=== PATIENT | female | born 1960 | race Two or more races ===

== ENCOUNTER 2018-03-24 07:12 | Inpatient (IN) | payer OTHER ==
[2018-03-24] VITALS (8 sets, daily range): BP systolic 139–162; BP diastolic 68–76
[~2018-03-24] VITALS: Ht 165.1 cm; Wt 100.7 kg
[2018-03-24] MEDS ORDERED: CELECOXIB 100 MG CAPSULE ONE (07:52)
[2018-03-24] MEDS ORDERED: oxyCODONE HCL SR 10MG TAB.SR.12H PO ONE (07:52)
[2018-03-24] MEDS ORDERED: ACETAMINOPHEN 325 MG TABLET ONE (07:52)
[2018-03-24] MEDS ORDERED: TRANEXAMIC ACID 3,000 MG in SODIUM CHLORIDE IRRIG SOLUTION 70 ML IR ONE (08:00)
[2018-03-24] MEDS ORDERED: MIDAZOLAM HCL 2 MG/2ML VIAL ONE (09:10)
[2018-03-24] MEDS ORDERED: MORPHINE SULFATE/PF 10 MG/10ML (1MG/ML) AMPUL ONE (09:10)
[2018-03-24] MEDS ORDERED: BUPIVACAINE 0.75% DEXT-PF 2 ML AMPUL ONE (09:10)
[2018-03-24] MEDS ORDERED: FENTANYL PF 100MCG/2ML AMPUL ONE ×2 (09:11→12:19)
[2018-03-24] MEDS ORDERED: BUPIVACAINE MPF 0.5% W/EPI INJ 30 ML VIAL ONE (09:11)
[2018-03-24] MEDS ORDERED: BACITRACIN 50000 UNITS/VIAL ONE (09:54)
[2018-03-24] MEDS ORDERED: HYDROMORPHONE INJ 2 MG/ML DISP.SYRIN ONE (12:09)
[2018-03-24] MEDS ORDERED: diphenhydrAMINE HCL 25 MG CAPSULE PO PRN (12:30)
[2018-03-24] MEDS ORDERED: ONDANSETRON HCL/PF 4 MG/2 ML VIAL IV PRN (12:30)
[2018-03-24] MEDS ORDERED: MAG HYDROX/AL HYDROX/SIMETH 30 ML UDC PO PRN (12:30)
[2018-03-24] MEDS ORDERED: CLONIDINE HCL 0.1 MG TABLET PO PRN (12:30)
[2018-03-24] MEDS ORDERED: PROMETHAZINE HCL 50 MG/ML AMPUL IM PRN (12:30)
[2018-03-24] MEDS ORDERED: MAGNESIUM HYDROXIDE 30 ML UDC PO PRN (12:30)
[2018-03-24] MEDS ORDERED: HYDROMORPHONE 1 MG/1 ML DISP.SYRIN ONE (12:36)
--- NOTE | 2018-03-24 12:50 | NUR ---
MS RV SERVICER NOTE RECEIVED PT FROM OR VIA BED. PT IS S/P RIGHT TOTAL KNEE ARTHROPLASTY WITH DR. FLORES. PT IS ALERT AND ORIENTED X4, DENIES N/V, CHEST PAIN, SOB. BREATHING IS EVEN AND UNLABORED ON 2 L NC. NEUROVASCULAR STATUS IS INTACT, KNEE IMMOBILIZER, ICE PACKS, AND SCDS IN PLACE. PATIENT RATES PAIN 10/10 IN THE RIGHT KNEE, HOWEVER PT STATES THAT SHE DOES NOT WANT TO TAKE ANY PAIN MEDICATION AT THIS TIME. PROVIDED EDUCATION REGARDING RISKS AND BENEFITS, PT STILL DECLINED AND STATE SHE WILL LET THE NURSE KNOW WHEN SHE WANTS PAIN MEDICATION. R WRIST #18 G IS SALINE LOCKED WITHOUT REDNESS OR SWELLING. ALL BELONGINGS ACCOUNTED FOR, AND BELONGINGS LIST SIGNED AND PLACED IN CHART. SURGICAL ORDERS FAXED TO PHARMACY, INFORMED HOSPITALIST DR. GOMEZ OF PT ARRIVAL.
[2018-03-24] MEDS ORDERED: COLACE 250 MG CAPSULE PO PRN (13:30)
[2018-03-24] MEDS ORDERED: TYLENOL 650 MG TABLET PO PRN (13:30)
[2018-03-24] MEDS ORDERED: SENOKOT 8.6 MG TABLET PO PRN (13:30)
[2018-03-24] MEDS ORDERED: DULCOLAX 10 MG/SUPP.RECT RC PRN (13:30)
[2018-03-24] MEDS ORDERED: AMBIEN 5 MG TABLET PO PRN (13:30)
--- NOTE | 2018-03-24 13:30 | NUR ---
MS RN NOTE PT STATES THAT HER HAS BROUGHT HER HOME MEDICATION, HOWEVER THEY DID NOT BRING THE MEDICATIONS IN THE LABELED BOTTLES BUT IN AN UNLABELED PILL ORGANIZER. INFORMED THE PATIENT AND THAT ALL UNLABELED MEDICATION SHOULD BE REMOVED FROM THE ROOM AND TAKEN HOME, AND TO NOT TAKE ANY MEDICATION WHILE IN THE HOSPITAL THAT IS NOT PROVIDED BY THE NURSE AND VERIFIED BY THE PHARMACY FOR SAFETY REASONS. THE PT AND VERBALIZED UNDERSTANDING. HOME MED RECON NURSE WILL FOLLOW UP WITH PT REGARDING HOME MEDS AND THE NURSE WILL INFORM HOSPITALIST OF NEED FOR MEDICATION RECONCILIATION.
[2018-03-24] MEDS ORDERED: ASPI-1169 PO (13:31)
[2018-03-24] MEDS ORDERED: LOSA100T31 PO (13:31)
[2018-03-24] MEDS ORDERED: PANT40TA2 PO (13:31)
[2018-03-24] MEDS ORDERED: POTA10TA15 PO (13:31)
[2018-03-24] MEDS ORDERED: HYDR12.55 PO (13:31)
[2018-03-24] MEDS ORDERED: LEVO75TA7 PO (13:31)
[2018-03-24] MEDS ORDERED: ATOR10TA PO (13:31)
[2018-03-24] MEDS ORDERED: METF-440 PO (13:31)
[2018-03-24] MEDS ORDERED: AMLO10TA6 PO (13:31)
[2018-03-24] MEDS ORDERED: FLUT16SP BNOSTRILS (13:31)
[2018-03-24] MEDS ORDERED: ALBU8.5H8 IH (13:31)
[2018-03-24] MEDS ORDERED: ESTR2TAB PO (13:31)
[2018-03-24] MEDS: IV LR 1000 ML 1,000 ML IV PRN (13:33)
--- NOTE | 2018-03-24 13:40 | NUR ---
MS RN PHYSICAL THERAPIST PHYSICAL THERAPIST AT THE BEDSIDE FOR PT EVAL. HOWEVER PT DECLINED DUE TO PAIN. PROVIDED EDUCATION TO PT REGARDING PAIN MANAGEMENT OPTIONS INCLUDING DILAUDID 0.5MG SUBQ, TYLENOL 650MG, AND OXYCODONE 5MG. PT STATED THAT SHE DOES NOT WANT TO TAKE ANY PAIN MEDICATION SINCE SHE JUST CAME BACK FROM SURGERY AND THAT SHE DOES NOT WANT TO WORK WITH PHYSICAL THERAPIST OR HAVE CPM PLACED TODAY TODAY. PROVIDED EDUCATION REGARDING RISKS AND BENEFITS OF PHYSICAL THERAPIST AND CPM, PT STILL DECLINE. INFORMED PT THAT SHE WILL NOT BE ABLE TO AMBULATE UNTIL PT EVALUATES HER, PT VERBALIZED UNDERSTANDING.
[2018-03-24] MEDS ORDERED: INSU10VI3 SQ (13:43)
[2018-03-24] MEDS: HYDROMORPHONE 1 MG/1 ML DISP.SYRIN SQ PRN ×2 (15:02→18:42)
--- NOTE | 2018-03-24 15:02 | NUR ---
MS RN NOTE ADMINISTERED DILAUDID 0.5MG SUBQ ORDERED FOR SEVERE PAIN. PT VS WNL
[2018-03-24] MEDS ORDERED: ALBUTEROL SULFATE 8 GM HFA.AER.AD IH PRN (15:30)
[2018-03-24] MEDS ORDERED: ALBUTEROL FS 2.5 MG/3 ML VIAL.NEB NEB PRN (16:00)
[2018-03-24] MEDS ORDERED: DEXTROSE 50%-WATER 50 ML DISP.SYRIN IV PRN (17:30)
[2018-03-24] MEDS: BLOOD SUGAR DIAGNOSTIC 1 EACH STRIP VI SCH ×2 (17:51→21:46)
--- NOTE | 2018-03-24 17:55 | NUR ---
MS RN INSULIN SPOKE WITH SHERIF IN PHARMACY AND REQUESTED THEY SEND UP INSULIN. PER SHERIF THEY WILL SEND UP SHORTLY.
[2018-03-24] MEDS: METFORMIN 500 MG TABLET PO SCH (17:59)
[2018-03-24] MEDS: FLUTICASONE PROPIONATE 16 GM BOTTLE NS SCH (17:59)
[2018-03-24] MEDS: DOCUSATE SODIUM 100 MG CAPSULE PO SCH (17:59)
--- NOTE | 2018-03-24 18:20 | NUR ---
MS RN INSULIN SPOKE WITH SHARON IN PHARMACY, PER SHARON PHARMACY WILL SEND UP INSULIN AND ANCEF SHORTLY.
--- NOTE | 2018-03-24 18:40 | NUR ---
MS RN ROOM CHANGE PER HUMBERTO HENLEY RN, OK FOR PT TO STAY OVERNIGHT AND PT WILL MOVE TO A NEW ROOM ONCE ONE CLEANED.
--- NOTE | 2018-03-24 18:43 | NUR ---
MS RN DILAUDID DILAUDID 0.5MG SUBQ ADMINISTERED FOR PAIN 11/18. BP: 153/79, HR: 101, SPO2: 96% W/ 2L NC.
--- NOTE | 2018-03-24 18:49 | NUR ---
MS RN JOSEPH SPOKE WITH SHERIF IN PHARMACY REGARDING ANCEF. INFORMED SHERIF THAT ANCEF WAS DUE AT 1800, PER SHERIF THE PHARMACY STAFF IS STILL WORKING ON IT AND WILL SEND SHORTLY.
--- NOTE | 2018-03-24 18:52 | NUR ---
RN INSULIN INSULIN DELIVERED TO FLOOR. RE-CHECKED BG PRIOR TO ADMINISTRATION AND IS 361. INSULIN SLIDING SCALE ADMINISTERED ORDERED, PT ATE DINNER AND PROVIDED WITH SNACK.
[2018-03-24] MEDS: *INSULIN REGULAR(HUMULIN R)HUM 100 UNIT/ML VIAL SQ PRN ×2 (18:58→21:47)
[2018-03-24] MEDS: ANCEF 1 G in IV D5W 50 ML IV SCH (19:00)
--- NOTE | 2018-03-24 19:01 | NUR ---
MS CINTRON LATE MEDICATION ADMINISTRATION NOTE ANCEF ADMINISTERED LATE DUE TO LATE DELIVERY TO FLOOR.
--- NOTE | 2018-03-24 19:13 | NUR ---
MS RN CLOSING NOTE PT IN BED, ALERT AND ORIENTED X4, DENIES N/V, CHEST PAIN, SOB. BREATHING IS EVEN AND UNLABORED ON 2 L NC. NEUROVASCULAR STATUS IS INTACT, KNEE IMMOBILIZER, ICE PACKS, AND SCDS IN PLACE. PATIENT RATES PAIN 5/10 IN THE RIGHT KNEE, AND TOLERABLE AT THIS TIME. R WRIST #18 G IS INFUSING ORDERED WITHOUT REDNESS OR SWELLING. ADLS PROVIDED AND PT ASSISTED TO TURN AND REPOSITION Q2H FOR THE DURATION OF THE SHIFT. ALL NEEDS ATTENDED TO, BED IS LOCKED AND IN LOWEST POSITION, SIDE RAILS UP X2, CALL LIGHT WITHIN REACH.
--- NOTE | 2018-03-24 19:45 | NUR ---
MS/RN NOTES RECEIVED PT. LYING IN BED. PT. IS AWAKE, ALERT AND ORIENTED X4. BREATHING EVEN AND UNLABORED ON ROOM AIR. NO SOB, RESPIRATORY DISTRESS OR COMPLAINTS OF PAIN NOTED AT THIS TIME. PT. STATES SHE RECENTLY RECEIVED PAIN MEDICATION AND IT IS EFFECTIVE. PT. IS S/P RIGHT TOTAL KNEE ARTHROPLASTY WITH DR. FLORES EARLIER TODAY. PT. WITH POST OP DRESSING PRESENT, CLEAN, DRY AND INTACT. NO BLEEDING OR DRAINAGE NOTED. PER DAYSHIFT NURSE PT. REFUSED PT AND CPM TODAY. PT. EDUCATED ON IMPORTANCE AND CONTINUED TO REFUSE. PT. WITH RIGHT WRIST 18 GAUGE PERIPHERAL IV PRESENT, PATENT AND INTACT ADMINISTERING TO PT. LR @ 75 ML/HR. BED LOCKED AND IN LOWEST POSITION, SIDE RAILS UP X3, BED ALARM ON, CALL LIGHT WITHIN REACH, WILL CONTINUE TO MONITOR.
[2018-03-24] MEDS: FAMOTIDINE (20 MG) 20 MG TABLET PO SCH (21:46)
[2018-03-25] MEDS: HYDROMORPHONE 1 MG/1 ML DISP.SYRIN SQ PRN ×3 (01:36→11:50)
[2018-03-25] MEDS: ANCEF 1 G in IV D5W 50 ML IV SCH (02:08)
[2018-03-25] MEDS: IV LR 1000 ML 1,000 ML IV PRN (04:02)
--- NOTE | 2018-03-25 06:21 | NUR ---
MS/RN NOTES PT. IS LYING IN BED RESTING. BREATHING EVEN AND UNLABORED ON ROOM AIR. NO SOB, RESPIRATORY DISTRESS OR COMPLAINTS OF PAIN NOTED AT THIS TIME. PT. WITH POST OP RIGHT KNEE DRESSING PRESENT, CLEAN, DRY AND INTACT. NO BLEEDING OR DRAINAGE NOTED. PT. WITH RIGHT WRIST 18 GAUGE PERIPHERAL IV PRESENT, PATENT AND INTACT ADMINISTERING TO PT. LR @ 75 ML/HR. ALL PT. NEEDS MET. BED LOCKED AND IN LOWEST POSITION, SIDE RAILS UP X3, BED ALARM ON, CALL LIGHT WITHIN REACH, WILL ENDORSE TO DAYSHIFT NURSE FOR CONTINUITY OF CARE.
[2018-03-25] MEDS: BLOOD SUGAR DIAGNOSTIC 1 EACH STRIP VI SCH ×4 (06:45→22:01)
[2018-03-25] MEDS: INSULIN REGULAR, HUMAN 100 UNIT/ML 3 ML VIAL SQ PRN ×3 (06:48→17:41)
--- NOTE | 2018-03-25 07:42 | NUR ---
MS/RN OPENING NOTE PATIENT IN BED IN STABLE CONDITION. A/O X 4. NO SIGNS OF ACUTE DISTRESS. COMPLAIN OF PAIN TO RIGHT LEG RATED 5/10. S/P RIGHT TOTAL KNEE ARTHROPLASTY. TOLERATING WELL. ALL NEEDS ATTENDED TO. CALL LIGHT WITHIN REACH. AT BEDSIDE. WILL CONTINUE TO MONITOR TO ENSURE SAFETY.
[2018-03-25 08:00] VITALS: BP 147/66
[2018-03-25] MEDS: ASPIRIN 325 MG TABLET PO SCH (08:31)
[2018-03-25] MEDS: ESTRADIOL 1 MG TABLET PO SCH (08:31)
[2018-03-25] MEDS: LEVOTHYROXINE SODIUM 75 MCG TABLET PO SCH (08:31)
[2018-03-25] MEDS: DOCUSATE SODIUM 100 MG CAPSULE PO SCH ×2 (08:31→16:46)
[2018-03-25] MEDS: FAMOTIDINE (20 MG) 20 MG TABLET PO SCH ×2 (08:31→21:36)
[2018-03-25] MEDS: LOSARTAN POTASSIUM 50 MG TABLET PO SCH (08:32)
[2018-03-25] MEDS: oxyCODONE IR immediate release 5 MG PO PRN ×2 (08:32→14:30)
[2018-03-25] MEDS: AMLODIPINE BESYLATE 10 MG TABLET PO SCH (08:33)
[2018-03-25] MEDS: POTASSIUM CHLORIDE 10 MEQ TABLET.SA PO SCH (08:33)
[2018-03-25] MEDS: HYDROCHLOROTHIAZIDE 25 MG TABLET PO SCH (08:33)
[2018-03-25] MEDS: METFORMIN 500 MG TABLET PO SCH ×2 (08:33→16:46)
[2018-03-25] MEDS: ATORVASTATIN 10 MG TABLET PO SCH (08:33)
[2018-03-25] MEDS: PANTOPRAZOLE 40 MG TABLET.DR PO SCH (08:33)
[2018-03-25] MEDS ORDERED: ASPIRIN 81 MG TAB.CHEW PO SCH (09:00)
[2018-03-25 16:00] VITALS: BP 138/58
[2018-03-25] MEDS: FLUTICASONE PROPIONATE 16 GM BOTTLE NS SCH (17:06)
--- NOTE | 2018-03-25 18:23 | NUR ---
MS/RN CLOSING NOTE PATIENT IN BED IN STABLE CONDITION. A/O X 4. NO SIGNS OF ACUTE DISTRESS. NO COMPLAIN OF PAIN OR DISCOMFORT AT THIS TIME. ALL NEEDS ATTENDED TO. CALL LIGHT WITHIN REACH. AT BEDSIDE. WILL ENDORSE TO NEXT SHIFT FOR CONTINUITY OF CARE.
[2018-03-25 20:00] VITALS: BP 144/63
[2018-03-25] MEDS: *INSULIN REGULAR(HUMULIN R)HUM 100 UNIT/ML VIAL SQ PRN (21:42)
--- NOTE | 2018-03-26 00:24 | NUR ---
patient with complainjts of constipation for 3 days and senna and milk of magnesia dose given as needed for constipation.o bm noted a this time.ut explained to the patient will monitor and if not effective will call the attwending physician, Addendum: 03/26/18 at 0026 by DIMPLE LIANG RN Amended: Links added.
--- NOTE | 2018-03-26 00:49 | NUR ---
patient has sofr formed bm moderate. Addendum: 03/26/18 at 0051 by DIMPLE LIANG RN Amended: Links added.
--- NOTE | 2018-03-26 07:16 | NUR ---
MS/RN Patient received Patient received from night auditor. A/O X4, vital signs stable, no fever. Dressing to right knee dry and intact. Safety measures in place, will continue to monitor and ensure safety.
[2018-03-26] MEDS: LEVOTHYROXINE SODIUM 75 MCG TABLET PO SCH (07:33)
[2018-03-26] MEDS: PANTOPRAZOLE 40 MG TABLET.DR PO SCH (07:33)
[2018-03-26] MEDS: BLOOD SUGAR DIAGNOSTIC 1 EACH STRIP VI SCH ×2 (07:34→11:45)
[2018-03-26] MEDS: oxyCODONE IR immediate release 5 MG PO PRN ×2 (07:39→11:44)
[2018-03-26 08:00] VITALS: BP 172/75
[2018-03-26 08:15] VITALS: BP 172/75
[2018-03-26] MEDS: LOSARTAN POTASSIUM 50 MG TABLET PO SCH (08:19)
[2018-03-26] MEDS: ATORVASTATIN 10 MG TABLET PO SCH (08:19)
[2018-03-26] MEDS: POTASSIUM CHLORIDE 10 MEQ TABLET.SA PO SCH (08:19)
[2018-03-26] MEDS: FAMOTIDINE (20 MG) 20 MG TABLET PO SCH (08:19)
[2018-03-26] MEDS: ASPIRIN 325 MG TABLET PO SCH (08:19)
[2018-03-26] MEDS: DOCUSATE SODIUM 100 MG CAPSULE PO SCH (08:19)
[2018-03-26] MEDS: AMLODIPINE BESYLATE 10 MG TABLET PO SCH (08:20)
[2018-03-26 08:21] VITALS: BP 172/75
[2018-03-26] MEDS: HYDROCHLOROTHIAZIDE 25 MG TABLET PO SCH (08:21)
[2018-03-26] MEDS: ESTRADIOL 1 MG TABLET PO SCH (08:22)
[2018-03-26] MEDS: METFORMIN 500 MG TABLET PO SCH (08:23)
[2018-03-26] MEDS ORDERED: ASPI-992 PO (09:54)
--- NOTE | 2018-03-26 11:00 | NUR ---
MS/economic geographer Discharge order given by Saravanan Sagastume for patient to be discharged to home today and follow up in office in 1-2 weeks.
--- NOTE | 2018-03-26 11:15 | NUR ---
MS/RN Pictures Dressing to right knee changed, pictures taken.
[2018-03-26] MEDS: *INSULIN REGULAR(HUMULIN R)HUM 100 UNIT/ML VIAL SQ PRN (11:44)
--- NOTE | 2018-03-26 12:00 | NUR ---
MS/RN Blood sugar Blood sugar at noon 490, rechecked and new value 499. 10 units of regular insulin given as per sliding scale and Dr Infante informed. Per patient, at home she was using 70/30 insulin not regular as prescribed in the hospital and no previous occasions when ordered a different insulin her blood sugars are high. No new orders from .
--- NOTE | 2018-03-26 12:09 | NUR ---
MS/occupational therapy aides teacher Patient discharged to home in stable condition with providing transport. Heplock and name bands removed, all personal belongings signed for on belongings list. Exit care signed by patient. Educated patient as to the importance of following up with Dr Chase in 1-2 weeks. Instructed on how to carry out wound care, supplies provided to patient to enable wound care to be carried out until home health can be arrange.
== END 2018-03-26 12:00 | disposition home health service (06) | DRG 470 ==
LOC: DS 07:12 → MED 12:40
PROVIDERS: ADMIT Specialist; ATTEND Internal Medicine
PROC: 0SRC0J9 Replacement of Right Knee Joint with Synthetic Substitute, Cemented, Open Approach (ICD-10-PCS; principal; 2018-03-24 11:35)
DX: M17.11 Unilateral primary osteoarthritis, right knee (principal); E03.9 Hypothyroidism, unspecified; E11.9 Type 2 diabetes mellitus without complications; E66.01 Morbid (severe) obesity due to excess calories; Z68.36 Body mass index [BMI] 36.0-36.9, adult; E78.00 Pure hypercholesterolemia, unspecified; J45.909 Unspecified asthma, uncomplicated; K21.9 Gastro-esophageal reflux disease without esophagitis; I10 Essential (primary) hypertension
CPT/HCPCS: 82962-TC; 87081-TC; 88305-TC; 88311-TC; 97110-TC; 97116-TC; 97530-TC; 97760-TC; A4217; A6402; A6403; C1713; G0378; J0690; J1100; J1170; J1815; J1885; J2250; J2274; J2550; J2704; J3010; J3490; J7060; J7120; L1830; Z7610